=== PATIENT | female | born 1995 | race Caucasian/White ===

== ENCOUNTER 2024-03-19 17:24 | Outpatient (CLI) | payer OTHER ==
[~2024-03-19] VITALS: Ht 157.5 cm; Wt 80.0 kg
[2024-03-19] MEDS ORDERED: ZOLO100T PO (17:40)
[2024-03-19] MEDS ORDERED: PRENTAB9 PO (17:40)
[2024-03-19] MEDS ORDERED: GNP250TA9 PO (17:41)
[2024-03-19] MEDS ORDERED: METF500T13 PO (17:41)
== END 2024-03-19 18:05 | disposition home or self-care (01) ==
LOC: M LDO 17:24
PROVIDERS: ATTEND Specialist
DX: O47.03 False labor before 37 completed weeks of gestation, third trimester (principal); Z3A.33 33 weeks gestation of pregnancy
CPT/HCPCS: 59025; G0463

== ENCOUNTER → 2025-02-05 | Outpatient (CLI) | payer OTHER ==
[~2025-02-05] MED LIST: GNP250TA9 PO; METF500T13 PO; PRENTAB9 PO; PROHANCE 279.3MG/ML 15ML VIAL As Ordered ONE; ZOLO100T PO
== END ==
LOC: M RAD 15:36
PROVIDERS: ATTEND Chiropractor
DX: M99.03 Segmental and somatic dysfunction of lumbar region (principal); M54.50 Low back pain, unspecified